=== PATIENT | female | born 1965 | race Caucasian/White ===

== ENCOUNTER 2019-05-01 13:20 | Emergency (ER) | payer MEDICAID, OTHER ==
[~2019-05-01] VITALS: Ht 162.6 cm; Wt 91.2 kg
[2019-05-01] MEDS ORDERED: cloNIDine HCL 0.1 MG TAB ONE (13:50)
[2019-05-01] MEDS ORDERED: cloNIDine HCL 0.1 MG TAB PO ONE (14:00)
[2019-05-01 14:30] LABS: Basophils # (auto) 0.1 uL; Basophils % (auto) 0.8 % (0.0-2.0); Eosinophils # (auto) 0.1 uL; Eosinophils % (auto) 1.6 % (0.0-7.0); Hematocrit 37.3 % (36.0-46.0); Hemoglobin 12.1 g/dL (12.2-16.2); Lymphocytes # (auto) 3.4 uL; Lymphocytes % (auto) 38.9 % (10.0-50.0); Mean Corpuscular Hemoglobin 24.7 pg (28.0-32.0); Mean Corpuscular Hgb Conc. 32.5 g/dL (32.0-36.0); Monocytes # (auto) 0.5 uL; Monocytes % (auto) 5.5 % (0.0-12.0); Neutrophils # (auto) 4.7 uL; Neutrophils % (auto) 53.2 % (37.0-80.0); Nucleated Red Blood Cells % 0.1 %; Platelet Count (auto) 350 10^3/uL (140-450); Red Blood Cells 4.91 10^6/uL (4.0-5.20); Red Cell Distribution Width 19.2 % (11.8-14.3); White Blood Cell 8.8 10^3/uL (4.4-10.8)
[2019-05-01 14:43] LABS: Albumin 3.3 g/dL (3.4-5.0); Anion Gap 9 (5-15); Blood Urea Nitrogen 14 mg/dL (7-18); Carbon Dioxide 24 mmol/L (21-32); Chloride 109 mmol/L (98-107); Glucose 80 mg/dL (74-106); Potassium 3.7 mmol/L (3.5-5.1); Sodium 142 mmol/L (136-145)
[2019-05-01 14:50] LABS: Alanine Aminotransferase 23 U/L (13-56); Alkaline Phosphatase 100 U/L (45-117); Aspartate Aminotransferase 16 U/L (15-37); BUN/Creatinine Ratio 15.2; Bilirubin, Total 0.6 mg/dL (0.2-1.0); GFR African American 82 mL/min; GFR Non-African American 67 mL/min; Total Protein 8.3 g/dL (6.4-8.2)
[2019-05-01] MEDS ORDERED: LEVETIRACETAM INJ 500 MG in D5W 5% 100 ML IV ONE (16:00)
[2019-05-01 19:21] VITALS: BP 121/79
== END 2019-05-01 19:56 | disposition left against medical advice (07) ==
LOC: EDBD 13:28 → ER 13:34
DX: G40.909 Epilepsy, unspecified, not intractable, without status epilepticus (principal); R42 Dizziness and giddiness; I10 Essential (primary) hypertension; D63.8 Anemia in other chronic diseases classified elsewhere; Z90.49 Acquired absence of other specified parts of digestive tract; Z88.8 Allergy status to other drugs, medicaments and biological substances
CPT/HCPCS: 36415; 70450; 71045; 80053; 80164; 84484; 85025; 93005; 96365; 99284; J1953; J7060

== ENCOUNTER 2019-05-11 18:53 | Emergency (ER) | payer MEDICAID ==
[~2019-05-11] VITALS: Ht 162.6 cm; Wt 91.2 kg
[2019-05-11] MEDS ORDERED: cloNIDine HCL 0.1 MG TAB PO ONE (19:15)
[2019-05-11 19:50] LABS: Eosinophils # (auto) 0.2 uL; Lymphocytes # (auto) 4.2 uL; Monocytes # (auto) 0.4 uL; Neutrophils # (auto) 5.4 uL
[2019-05-11 19:51] LABS: Basophils # (auto) 0.1 uL; Basophils % (auto) 0.6 % (0.0-2.0); Eosinophils % (auto) 1.9 % (0.0-7.0); Hematocrit 38.1 % (36.0-46.0); Hemoglobin 12.2 g/dL (12.2-16.2); Lymphocytes % (auto) 40.9 % (10.0-50.0); Mean Corpuscular Hemoglobin 24.6 pg (28.0-32.0); Mean Corpuscular Hgb Conc. 32.1 g/dL (32.0-36.0); Mean Corpuscular Volume 76.9 fL (80.0-100.0); Monocytes % (auto) 4.4 % (0.0-12.0); Neutrophils % (auto) 52.2 % (37.0-80.0); Nucleated Red Blood Cells % 0.1 %; Platelet Count (auto) 340 10^3/uL (140-450); Red Blood Cells 4.96 10^6/uL (4.0-5.20); Red Cell Distribution Width 18.5 % (11.8-14.3); White Blood Cell 10.3 10^3/uL (4.4-10.8)
[2019-05-11 19:57] LABS: Albumin 3.3 g/dL (3.4-5.0); Anion Gap 8 (5-15); Blood Urea Nitrogen 19 mg/dL (7-18); Calcium 9.7 mg/dL (8.5-10.1); Carbon Dioxide 26 mmol/L (21-32); Chloride 109 mmol/L (98-107); Glucose 111 mg/dL (74-106); Magnesium 2.4 mg/dL (1.6-2.6); Potassium 3.3 mmol/L (3.5-5.1); Sodium 143 mmol/L (136-145)
[2019-05-11 20:03] LABS: Alanine Aminotransferase 26 U/L (13-56); Alkaline Phosphatase 102 U/L (45-117); Aspartate Aminotransferase 15 U/L (15-37); BUN/Creatinine Ratio 19.2; Bilirubin, Total 0.4 mg/dL (0.2-1.0); GFR African American 75 mL/min; GFR Non-African American 62 mL/min; Total Protein 8.2 g/dL (6.4-8.2)
[2019-05-12 00:11] LABS: Salicylate < 1.7 mg/dL (2.8-20.0)
[2019-05-12 00:17] LABS: Acetaminophen < 2.0 ug/mL (10-30)
[2019-05-12 02:41] VITALS: BP 152/96
== END 2019-05-12 06:17 | disposition still patient (30) ==
LOC: ER 18:57
DX: F32.9 Major depressive disorder, single episode, unspecified (principal); R45.851 Suicidal ideations; I10 Essential (primary) hypertension; Z90.49 Acquired absence of other specified parts of digestive tract
CPT/HCPCS: 36415; 80053; 80329; 83735; 84484; 85025; 93005

== ENCOUNTER 2023-04-16 11:36 | Emergency (ER) | payer MEDICAID, OTHER ==
[~2023-04-16] VITALS: Ht 162.6 cm; Wt 90.9 kg
[2023-04-16 12:19] LABS: Hemoglobin 12.8 g/dL (12.2-16.2); Mean Corpuscular Hemoglobin 24.4 pg (28.0-32.0); Mean Corpuscular Volume 76.3 fL (80.0-100.0); Red Blood Cells 5.24 10^6/uL (4.0-5.20); Red Cell Distribution Width 17.7 % (11.8-14.3); White Blood Cell 12.2 10^3/uL (4.4-10.8)
[2023-04-16 12:29] LABS: INR 0.95 (0.9-1.15); Partial Thromboplastin Time 27.5 sec (24.6-33.4)
[2023-04-16 12:35] LABS: Basophils % (manual) 0 (0.0-2.0); Blast Cells 0; Metamyelocytes % 0; Myelocytes % 0; Promyelocytes % 0
[2023-04-16 13:32] LABS: Albumin 3.4 g/dL (3.4-5.0); Calcium 9.4 mg/dL (8.5-10.1); Magnesium 2.5 mg/dL (1.6-2.6)
[2023-04-16 13:36] LABS: BUN/Creatinine Ratio 18.3 (10.0-20.0); Potassium 4.2 mmol/L (3.5-5.1); Total Protein 8.2 g/dL (6.4-8.2)
[2023-04-16 13:36] LABS: Urine Bacteria MOD /hpf (None Seen); Urine Blood 1+ /uL (Negative); Urine Mucus FEW (None Seen); Urine Specific Gravity 1.023 (1.001-1.035); Urine WBC 15 /hpf (0 - 5)
[2023-04-16 13:41] LABS: Band Neutrophils % (manual) 1; Eosinophils % (manual) 1 (0-7); Lymphocytes % (manual) 57 (10.0-50.0); Monocytes % (manual) 3 (0-12); Reactive Lymphocytes 4
[2023-04-16 14:33] VITALS: BP 118/101
[2023-04-16] MEDS ORDERED: cloNIDine HCL 0.1 MG TAB PO ONE (15:30)
[2023-04-16] MEDS ORDERED: LISI20TA28 PO (17:30)
[2023-04-16] MEDS ORDERED: HYDR25TA5 PO (17:30)
== END 2023-04-16 18:28 | disposition left against medical advice (07) ==
LOC: ER 11:36
DX: R45.851 Suicidal ideations (principal); R44.0 Auditory hallucinations; I16.0 Hypertensive urgency; I10 Essential (primary) hypertension; Z90.49 Acquired absence of other specified parts of digestive tract; Z90.710 Acquired absence of both cervix and uterus; Z86.73 Personal history of transient ischemic attack (TIA), and cerebral infarction without residual deficits
CPT/HCPCS: 36415; 70450; 70496; 70551; 80053; 81001; 83735; 85007; 85027; 85610; 85730; 93005

== ENCOUNTER 2023-05-01 10:50 | Emergency (ER) | payer MEDICAID ==
[~2023-05-01] VITALS: Ht 165.1 cm; Wt 90.9 kg
[~2023-05-01 10:50] MED LIST: HYDR25TA5 PO; LISI20TA56 PO
[2023-05-01 10:59] VITALS: BP 145/84
[2023-05-01] MEDS ORDERED: SODIUM CHLORIDE 0.9% 1,000 ML IV ONE (11:00)
[2023-05-01] MEDS ORDERED: PANTOPRAZOLE 40 MG/10 ML VIAL INJ IV ONE (11:00)
[2023-05-01] MEDS ORDERED: ONDANSETRON HCL 4 MG/2 ML VIAL IV ONE (11:00)
[2023-05-01 11:15] LABS: Basophils # (auto) 0.1 10 ^3/uL (0-0.2); Basophils % (auto) 0.4 % (0.0-2.0); Eosinophils # (auto) 0 10 ^3/uL (0-0.8); Hematocrit 43.5 % (36.0-46.0); Hemoglobin 14.3 g/dL (12.2-16.2); Lymphocytes # (auto) 7.9 10 ^3/uL (0.4-5.4); Lymphocytes % (auto) 36.7 % (10.0-50.0); Mean Corpuscular Hemoglobin 24.8 pg (28.0-32.0); Mean Corpuscular Hgb Conc. 32.9 g/dL (32.0-36.0); Mean Corpuscular Volume 75.4 fL (80.0-100.0); Monocytes # (auto) 0.7 10 ^3/uL (0-1.3); Monocytes % (auto) 3.2 % (0.0-12.0); Neutrophils # (auto) 12.8 10 ^3/uL (1.6-8.6); Neutrophils % (auto) 59.7 % (37.0-80.0); Nucleated Red Blood Cells % 0.1 %; Red Blood Cells 5.77 10^6/uL (4.0-5.20); Red Cell Distribution Width 17.7 % (11.8-14.3); White Blood Cell 21.5 10^3/uL (4.4-10.8)
[2023-05-01 12:52] LABS: Albumin 3.7 g/dL (3.4-5.0); Calcium 9.7 mg/dL (8.5-10.1); Potassium 4.2 mmol/L (3.5-5.1)
[2023-05-01 12:55] LABS: BUN/Creatinine Ratio 22.9 (10.0-20.0); Bilirubin, Total 1.6 mg/dL (0.2-1.0); Total Protein 8.4 g/dL (6.4-8.2)
== END 2023-05-01 15:12 | disposition left against medical advice (07) ==
LOC: ER 10:50 → EDBD 10:50 → ER 15:12
DX: R11.2 Nausea with vomiting, unspecified (principal); R19.7 Diarrhea, unspecified; R53.1 Weakness; F32.9 Major depressive disorder, single episode, unspecified; I10 Essential (primary) hypertension; Z86.73 Personal history of transient ischemic attack (TIA), and cerebral infarction without residual deficits; Z90.710 Acquired absence of both cervix and uterus; Z90.49 Acquired absence of other specified parts of digestive tract; Z88.8 Allergy status to other drugs, medicaments and biological substances; Z79.899 Other long term (current) drug therapy
CPT/HCPCS: 36415; 74176; 80053; 85025; 96361; 96374; 96375; 99284; C9113; J2405; J7030

== ENCOUNTER → 2024-02-13 | Outpatient (CLI) | payer MEDICAID ==
[2024-02-13 10:55] LABS: Red Blood Cells 5.29 10^6/uL (4.0-5.20)
[2024-02-13 10:57] LABS: Hematocrit 41.1 % (36.0-46.0); Hemoglobin 13.3 g/dL (12.2-16.2); Mean Corpuscular Hemoglobin 25.1 pg (28.0-32.0); Mean Corpuscular Hgb Conc. 32.2 g/dL (32.0-36.0); Mean Corpuscular Volume 77.8 fL (80.0-100.0); Red Cell Distribution Width 17.4 % (11.8-14.3)
[2024-02-13 11:04] LABS: Band Neutrophils % (manual) 0; Basophils % (manual) 0 (0.0-2.0); Blast Cells 0; Eosinophils % (manual) 0 (0-7); Metamyelocytes % 0; Monocytes % (manual) 0 (0-12); Myelocytes % 0; Promyelocytes % 0
[2024-02-13 11:05] LABS: Urine Bacteria NONE SEEN /hpf (None Seen); Urine Blood 1+ /uL (Negative); Urine Clarity HAZY (Clear); Urine Color Yellow (Yellow); Urine Protein, UAD Negative (Negative); Urine Specific Gravity 1.019 (1.001-1.035); Urine Urobilinogen Normal (Negative); Urine WBC 2 /hpf (0 - 5)
[2024-02-13 11:23] LABS: Lymphocytes % (manual) 42 (10.0-50.0); Platelet Estimate Adequate; Reactive Lymphocytes 10
[2024-02-13 11:38] LABS: Chloride 105 mmol/L (98-107); Potassium 3.9 mmol/L (3.5-5.1); Sodium 140 mmol/L (136-145)
[2024-02-13 11:39] LABS: Anion Gap 6 (5-15); Calcium 10.1 mg/dL (8.5-10.1); Carbon Dioxide 29 mmol/L (20-30)
[2024-02-13 11:44] LABS: Alkaline Phosphatase 116 U/L (46-116); BUN/Creatinine Ratio 13.9 (10.0-20.0); Blood Urea Nitrogen 11 mg/dL (9-23); Glucose 82 mg/dL (74-106); Triglycerides 110 mg/dL (< 150)
[2024-02-13 11:45] LABS: LDL Cholesterol 134 mg/dL (< 100)
[2024-02-13 11:46] LABS: Albumin 4.4 g/dL (3.2-4.8); Aspartate Aminotransferase 17 U/L (13-40); Bilirubin, Total 0.9 mg/dL (0.2-1.0); Cholesterol 201 mg/dL (< 200); HDL Cholesterol 48 mg/dL (40-59); Total Protein 8.2 g/dL (5.7-8.2)
[2024-02-13 12:07] LABS: Alanine Aminotransferase 13 U/L (7-40)
== END | disposition home or self-care (01) ==
LOC: LAB 10:34
PROVIDERS: ATTEND Internal Medicine
DX: Z00.01 Encounter for general adult medical examination with abnormal findings (principal); Z29.9 Encounter for prophylactic measures, unspecified; Z13.1 Encounter for screening for diabetes mellitus
CPT/HCPCS: 36415; 80053; 80061; 81001; 83036; 84439; 84443; 85007; 85027

== ENCOUNTER 2024-08-21 11:07 | Inpatient (IN) | payer MEDICAID ==
[~2024-08-21] VITALS: Ht 162.6 cm; Wt 93.9 kg
[2024-08-21] MEDS ORDERED: ASPirin 81 mg TAB PO ONE (11:45)
[2024-08-21 11:49] LABS: Basophils # (auto) 0.1 10 ^3/uL (0-0.2); Basophils % (auto) 0.5 % (0.0-2.0); Eosinophils # (auto) 0.1 10 ^3/uL (0-0.8); Monocytes # (auto) 0.6 10 ^3/uL (0-1.3); Monocytes % (auto) 4.6 % (0.0-12.0); Neutrophils # (auto) 5.1 10 ^3/uL (1.6-8.6); Red Cell Distribution Width 17.9 % (11.8-14.3)
[2024-08-21 11:51] LABS: Eosinophils % (auto) 0.9 % (0.0-7.0); Hemoglobin 12.3 g/dL (12.2-16.2); Lymphocytes # (auto) 6.5 10 ^3/uL (0.4-5.4); Lymphocytes % (auto) 52.9 % (10.0-50.0); Mean Corpuscular Hgb Conc. 33.2 g/dL (32.0-36.0); Mean Corpuscular Volume 78.1 fL (80.0-100.0); Neutrophils % (auto) 41.1 % (37.0-80.0); Nucleated Red Blood Cells % 0.5 %; Platelet Count (auto) 247 10^3/uL (140-450); Red Blood Cells 4.74 10^6/uL (4.0-5.20); White Blood Cell 12.3 10^3/uL (4.4-10.8)
[2024-08-21 12:03] LABS: INR 1.01 (0.9-1.15); Partial Thromboplastin Time 28.6 SEC (24.5-34.5); Prothrombin Time 10.7 sec (9.3-11.8)
[2024-08-21 12:05] LABS: Alanine Aminotransferase 15 U/L (7-40); Albumin 4.2 g/dL (3.2-4.8); Alkaline Phosphatase 96 U/L (46-116); Anion Gap 6 (5-15); Aspartate Aminotransferase 12 U/L (13-40); BUN/Creatinine Ratio 25.6 (10.0-20.0); Blood Urea Nitrogen 22 mg/dL (9-23); Carbon Dioxide 28 mmol/L (20-31); Chloride 108 mmol/L (98-107); Glucose 85 mg/dL (74-106); Magnesium 2.4 mg/dL (1.6-2.6); Sodium 142 mmol/L (136-145)
[2024-08-21 12:06] LABS: Bilirubin, Total 0.5 mg/dL (0.2-1.0); Total Protein 7.4 g/dL (5.7-8.2)
[2024-08-21] MEDS: ASPirin 81 mg TAB PO ONE (14:34)
[2024-08-21] MEDS ORDERED: MORPHINE SULFATE INJ 2 MG/ml SYRG IV PRN (23:15)
[2024-08-22] VITALS (9 sets, daily range): BP systolic 143–185; BP diastolic 86–101; PULSE 79–97; RESP 16–24; TEMP 97.4–98.2; O2SAT 0–100
[2024-08-22] MEDS ORDERED: NIFE10CA58 PO (01:34)
[2024-08-22] MEDS ORDERED: ARIP2TAB INJ (01:34)
[2024-08-22] MEDS ORDERED: DIVA-92 PO (01:34)
[2024-08-22] MEDS ORDERED: DULO60CA41 PO (01:34)
[2024-08-22] MEDS ORDERED: PRAZ1CAP2 PO (01:34)
[2024-08-22] MEDS ORDERED: BUSP5TAB51 PO (01:34)
[2024-08-22] MEDS ORDERED: CLON0.1T PO (01:34)
[2024-08-22 07:50] LABS: Basophils % (auto) 0.3 % (0.0-2.0); Eosinophils # (auto) 0.2 10 ^3/uL (0-0.8); Nucleated Red Blood Cells % 0.1 %
[2024-08-22 07:53] LABS: Basophils # (auto) 0 10 ^3/uL (0-0.2); Eosinophils % (auto) 1.1 % (0.0-7.0); Hematocrit 41.3 % (36.0-46.0); Hemoglobin 13.9 g/dL (12.2-16.2); Lymphocytes # (auto) 6.9 10 ^3/uL (0.4-5.4); Lymphocytes % (auto) 47.3 % (10.0-50.0); Mean Corpuscular Hemoglobin 26.4 pg (28.0-32.0); Mean Corpuscular Hgb Conc. 33.7 g/dL (32.0-36.0); Mean Corpuscular Volume 78.5 fL (80.0-100.0); Monocytes # (auto) 0.8 10 ^3/uL (0-1.3); Monocytes % (auto) 5.5 % (0.0-12.0); Neutrophils # (auto) 6.7 10 ^3/uL (1.6-8.6); Neutrophils % (auto) 45.8 % (37.0-80.0); Platelet Count (auto) 257 10^3/uL (140-450); Red Blood Cells 5.27 10^6/uL (4.0-5.20); White Blood Cell 14.7 10^3/uL (4.4-10.8)
[2024-08-22] MEDS: hydrALAZINE HCL 20 MG/ML VL IV PRN (09:05)
[2024-08-22] MEDS: DOCUSATE SOD 100 MG CAP PO ONE (09:06)
[2024-08-22 09:51] LABS: Calcium 10.1 mg/dL (8.7-10.4); Chloride 106 mmol/L (98-107); Potassium 3.9 mmol/L (3.5-5.1); Sodium 140 mmol/L (136-145)
[2024-08-22 09:52] LABS: Anion Gap 6 (5-15); Carbon Dioxide 28 mmol/L (20-31)
[2024-08-22 09:57] LABS: BUN/Creatinine Ratio 23.7 (10.0-20.0); Blood Urea Nitrogen 18 mg/dL (9-23); Glucose 82 mg/dL (74-106)
[2024-08-22 10:12] LABS: Triglycerides 97 mg/dL (< 150)
[2024-08-22 10:13] LABS: HDL Cholesterol 41 mg/dL (40-59); LDL Cholesterol 87 mg/dL (< 100)
[2024-08-22 10:14] LABS: Cholesterol 148 mg/dL (< 200)
[2024-08-22 10:15] LABS: Erythrocyte Sedimentation Rate 40 mm/hr (0-20)
[2024-08-22] MEDS ORDERED: busPIRone HCL 10 MG TAB PO SCH (10:27)
[2024-08-22 12:26] LABS: % Iron Saturation 11.8 % (15-50)
[2024-08-22] MEDS: COLCHICINE 0.6 MG CAP PO ONE (13:37)
[2024-08-22] MEDS: POLYETHYLENE GLYCOL 17 GM PWDR PO ONE (13:37)
[2024-08-22] MEDS: NIFEdipine ER 30 MG TAB PO ONE (13:39)
[2024-08-22] MEDS: PANTOPRAZOLE 40 MG TAB PO ONE (13:54)
[2024-08-22] MEDS: IBUPROFEN 800 MG TAB PO SCH (14:00)
[2024-08-22] MEDS: PRAZOSIN HCL 1 MG CAP PO SCH (16:34)
[2024-08-22] MEDS ORDERED: ATOR40TA52 PO (17:21)
[2024-08-22] MEDS ORDERED: DULO1CAP4 PO (17:21)
[2024-08-22] MEDS ORDERED: ARIP1TAB63 PO (17:21)
[2024-08-22] MEDS ORDERED: NIFE1TAB30 PO (17:21)
[2024-08-22] MEDS ORDERED: CARV25TA55 PO (17:21)
[2024-08-22] MEDS ORDERED: ARIP400I IM (17:21)
[2024-08-22] MEDS ORDERED: CARI1CAP2 PO (17:21)
[2024-08-22] MEDS ORDERED: BUSP30TA PO (17:21)
[2024-08-22] MEDS ORDERED: CLON0.2T PO (17:21)
[2024-08-22] MEDS: ACETAMINOPHEN 500 MG TAB PO ONE (17:28)
[2024-08-22] MEDS: cloNIDine HCL 0.1 MG TAB PO ONE (17:50)
[2024-08-22] MEDS: ONDANSETRON HCL 4 MG/2 ML VIAL IV PRN (18:05)
[2024-08-22] MEDS: NITROGLYCERIN 0.4 MG SL TAB SL PRN (19:02)
[2024-08-22] MEDS: ATORVASTATIN 20 MG TAB PO SCH (22:35)
[2024-08-22] MEDS: COLCHICINE 0.6 MG CAP PO SCH (22:36)
[2024-08-23] VITALS (9 sets, daily range): BP systolic 121–144; BP diastolic 73–92; PULSE 86–108; RESP 14–20; TEMP 97.5–98.7; O2SAT 0–96
[2024-08-23] MEDS: PANTOPRAZOLE 40 MG TAB PO SCH (06:31)
[2024-08-23 08:10] LABS: Basophils # (auto) 0 10 ^3/uL (0-0.2); Basophils % (auto) 0.3 % (0.0-2.0); Eosinophils # (auto) 0.1 10 ^3/uL (0-0.8); Eosinophils % (auto) 0.8 % (0.0-7.0); Hemoglobin 14.7 g/dL (12.2-16.2); Lymphocytes # (auto) 6.1 10 ^3/uL (0.4-5.4); Lymphocytes % (auto) 46.6 % (10.0-50.0); Mean Corpuscular Hemoglobin 26.1 pg (28.0-32.0); Mean Corpuscular Hgb Conc. 33.4 g/dL (32.0-36.0); Mean Corpuscular Volume 78.2 fL (80.0-100.0); Monocytes # (auto) 0.8 10 ^3/uL (0-1.3); Monocytes % (auto) 6.3 % (0.0-12.0); Neutrophils # (auto) 6.1 10 ^3/uL (1.6-8.6); Nucleated Red Blood Cells % 0.3 %; Platelet Count (auto) 307 10^3/uL (140-450); Red Blood Cells 5.63 10^6/uL (4.0-5.20); Red Cell Distribution Width 18.4 % (11.8-14.3); White Blood Cell 13.2 10^3/uL (4.4-10.8)
[2024-08-23 08:24] LABS: Chloride 104 mmol/L (98-107); Potassium 3.8 mmol/L (3.5-5.1); Sodium 138 mmol/L (136-145)
[2024-08-23 08:25] LABS: Anion Gap 8 (5-15); Calcium 11.1 mg/dL (8.7-10.4); Carbon Dioxide 26 mmol/L (20-31)
[2024-08-23 08:30] LABS: BUN/Creatinine Ratio 19.8 (10.0-20.0); Blood Urea Nitrogen 22 mg/dL (9-23); Glucose 83 mg/dL (74-106)
[2024-08-23] MEDS: POLYETHYLENE GLYCOL 17 GM PWDR PO SCH (09:16)
[2024-08-23] MEDS: NIFEdipine ER 30 MG TAB PO SCH (09:17)
[2024-08-23 15:41] LABS: Urine Bacteria FEW /hpf (None Seen); Urine Blood 1+ /uL (Negative); Urine Clarity Turbid (Clear); Urine Color Yellow (Yellow); Urine Hyaline Cast FEW /lpf (0 - 2); Urine Mucus FEW (None Seen); Urine Protein, UAD TRACE (Negative); Urine Specific Gravity 1.021 (1.001-1.035); Urine Urobilinogen Normal (Negative); Urine WBC 8 /hpf (0 - 5); Urine pH 5.5 (5.0-9.0)
[2024-08-23 15:43] LABS: Amphetamine Screen, Urine Neg (NEGATIVE); Barbiturate Scree,Urine Neg (NEGATIVE); Benzodiazephine Screen, Urine Neg (NEGATIVE); Cocaine Screen, Urine Neg (NEGATIVE); Opiate Scree,Urine Neg (NEGATIVE)
[2024-08-23 15:44] LABS: Cannabinoid Screen, Urine Neg (NEGATIVE); Phencyclidine Screen, Urine Neg (NEGATIVE)
[2024-08-23 15:45] LABS: Creatinine, Urine 157.99 mg/dL (30.0-125.0)
[2024-08-24 01:00] VITALS: BP 137/98; PULSE 95; RESP 19; O2SAT 96
[2024-08-24 05:00] VITALS: BP 149/95; PULSE 100; RESP 18; TEMP 98; O2SAT 98
[2024-08-24 07:09] LABS: Alanine Aminotransferase 36 U/L (7-40); Albumin 4.4 g/dL (3.2-4.8); Anion Gap 8 (5-15); Aspartate Aminotransferase 34 U/L (13-40); BUN/Creatinine Ratio 23.5 (10.0-20.0); Bilirubin, Total 0.5 mg/dL (0.2-1.0); Calcium 11.1 mg/dL (8.7-10.4); Carbon Dioxide 27 mmol/L (20-31); Chloride 105 mmol/L (98-107); Glucose 92 mg/dL (74-106); Potassium 4.5 mmol/L (3.5-5.1); Sodium 140 mmol/L (136-145)
[2024-08-24 07:19] LABS: Alkaline Phosphatase 107 U/L (46-116)
[2024-08-24 07:23] LABS: Blood Urea Nitrogen 32 mg/dL (9-23)
[2024-08-24 07:34] LABS: Basophils # (auto) 0.1 10 ^3/uL (0-0.2); Basophils % (auto) 0.5 % (0.0-2.0); Eosinophils # (auto) 0.3 10 ^3/uL (0-0.8); Eosinophils % (auto) 1.9 % (0.0-7.0); Hematocrit 44.9 % (36.0-46.0); Hemoglobin 14.9 g/dL (12.2-16.2); Lymphocytes # (auto) 7.9 10 ^3/uL (0.4-5.4); Lymphocytes % (auto) 51.4 % (10.0-50.0); Mean Corpuscular Hemoglobin 26.1 pg (28.0-32.0); Mean Corpuscular Hgb Conc. 33.2 g/dL (32.0-36.0); Mean Corpuscular Volume 78.7 fL (80.0-100.0); Monocytes # (auto) 1.3 10 ^3/uL (0-1.3); Monocytes % (auto) 8.2 % (0.0-12.0); Neutrophils # (auto) 5.8 10 ^3/uL (1.6-8.6); Nucleated Red Blood Cells % 0.3 %; Platelet Count (auto) 283 10^3/uL (140-450); Red Cell Distribution Width 18.4 % (11.8-14.3); White Blood Cell 15.3 10^3/uL (4.4-10.8)
[2024-08-24 08:00] VITALS: PULSE 91
[2024-08-24 08:15] VITALS: PULSE 89; RESP 18; O2SAT 0
[2024-08-24 09:40] VITALS: BP 170/111; PULSE 89; RESP 18; TEMP 98; O2SAT 94
[2024-08-24] MEDS ORDERED: PRAZ1CAP2 PO (12:43)
[2024-08-24] MEDS ORDERED: NIFE1TAB36 PO (12:43)
[2024-08-24] MEDS ORDERED: PANT40TA2 PO (12:48)
[2024-08-24] MEDS ORDERED: IBUP200C14 PO (12:48)
[2024-08-24] MEDS ORDERED: COLC1CAP PO (12:48)
[2024-08-24] MEDS ORDERED: IBUP-1455 PO (12:48)
[2024-08-24 14:23] VITALS: TEMP 98.5
[2024-08-24] MEDS: cloNIDine HCL 0.1 MG TAB PO SCH (14:23)
== END 2024-08-24 14:49 | disposition home or self-care (01) | DRG 207 ==
LOC: EDBD 11:07 → ER 11:07 → TELE 23:12 → TELE-CENTR 08-22 01:00
PROVIDERS: ADMIT Internal Medicine; ATTEND Emergency Medicine
DX: I30.9 Acute pericarditis, unspecified (principal); N17.9 Acute kidney failure, unspecified; F25.9 Schizoaffective disorder, unspecified; J90 Pleural effusion, not elsewhere classified; R45.851 Suicidal ideations; I11.0 Hypertensive heart disease with heart failure; E11.9 Type 2 diabetes mellitus without complications; E66.9 Obesity, unspecified; I16.0 Hypertensive urgency; K59.00 Constipation, unspecified; F31.9 Bipolar disorder, unspecified; F43.10 Post-traumatic stress disorder, unspecified; G40.909 Epilepsy, unspecified, not intractable, without status epilepticus; I49.3 Ventricular premature depolarization; Z59.01 Sheltered homelessness; Z79.899 Other long term (current) drug therapy; Z90.49 Acquired absence of other specified parts of digestive tract; Z86.73 Personal history of transient ischemic attack (TIA), and cerebral infarction without residual deficits; Z82.49 Family history of ischemic heart disease and other diseases of the circulatory system; Z91.148 Patient's other noncompliance with medication regimen for other reason; Z81.8 Family history of other mental and behavioral disorders; Z90.710 Acquired absence of both cervix and uterus; Z59.00 Homelessness unspecified; Z68.35 Body mass index [BMI] 35.0-35.9, adult
CPT/HCPCS: 36415; 71045; 71250; 80048; 80053; 80061; 80307; 81001; 82306; 82570; 82607; 83036; 83540; 83550; 83735; 83880; 84300; 84443; 84484; 85025; 85610; 85652; 85730; 86141; 93005; 93306; 93970; G0378; J2405

== ENCOUNTER → 2024-09-02 | Outpatient (CLI) | payer MEDICAID ==
[~2024-09-02] MED LIST changes: +ARIP1TAB63 PO; +ARIP400I IM; +ATOR40TA52 PO; +BUSP30TA PO; +CARI1CAP2 PO; +COLC1CAP PO; +DIVA-92 PO; +DULO1CAP4 PO; -HYDR25TA5 PO; +IBUP-1455 PO; +IBUP200C14 PO; -LISI20TA56 PO; +NIFE1TAB36 PO; +PANT40TA2 PO; +PRAZ1CAP2 PO
[2024-09-02 14:12] LABS: Mean Corpuscular Volume 78.7 fL (80.0-100.0)
[2024-09-02 14:15] LABS: Hematocrit 40.1 % (36.0-46.0); Hemoglobin 13.2 g/dL (12.2-16.2); Mean Corpuscular Hemoglobin 25.8 pg (28.0-32.0); Mean Corpuscular Hgb Conc. 32.8 g/dL (32.0-36.0); Platelet Count (auto) 225 10^3/uL (140-450); Red Cell Distribution Width 18.6 % (11.8-14.3); White Blood Cell 18.1 10^3/uL (4.4-10.8)
[2024-09-02 14:19] LABS: Band Neutrophils % (manual) 0; Basophils % (manual) 0 (0.0-2.0); Blast Cells 0; Metamyelocytes % 0; Myelocytes % 0; Promyelocytes % 0
[2024-09-02 14:29] LABS: Alanine Aminotransferase 89 U/L (7-40); Albumin 4.4 g/dL (3.2-4.8); Alkaline Phosphatase 103 U/L (46-116); Anion Gap 9 (5-15); Aspartate Aminotransferase 57 U/L (13-40); BUN/Creatinine Ratio 23.8 (10.0-20.0); Bilirubin, Total 0.5 mg/dL (0.2-1.0); Blood Urea Nitrogen 20 mg/dL (9-23); Calcium 10.1 mg/dL (8.7-10.4); Carbon Dioxide 29 mmol/L (20-31); Chloride 105 mmol/L (98-107); Glucose 104 mg/dL (74-106); Potassium 3.4 mmol/L (3.5-5.1); Sodium 143 mmol/L (136-145); Total Protein 7.6 g/dL (5.7-8.2)
[2024-09-02 14:49] LABS: Eosinophils % (manual) 4 (0-7); Lymphocytes % (manual) 62 (10.0-50.0); Monocytes % (manual) 5 (0-12); Platelet Estimate Adequate; Reactive Lymphocytes 4
[2024-09-02 14:51] LABS: Erythrocyte Sedimentation Rate 17 mm/hr (0-20)
== END | disposition home or self-care (01) ==
LOC: LAB 13:27
PROVIDERS: ATTEND Internal Medicine
DX: I10 Essential (primary) hypertension (principal); N39.0 Urinary tract infection, site not specified
CPT/HCPCS: 36415; 80053; 85007; 85027; 85652

== ENCOUNTER → 2024-09-12 | Outpatient (CLI) | payer MEDICAID ==
[2024-09-12 11:10] LABS: Hemoglobin 13.7 g/dL (12.2-16.2)
[2024-09-12 11:12] LABS: Hematocrit 41.2 % (36.0-46.0); Mean Corpuscular Hemoglobin 26.2 pg (28.0-32.0); Mean Corpuscular Hgb Conc. 33.2 g/dL (32.0-36.0); Mean Corpuscular Volume 78.9 fL (80.0-100.0); Platelet Count (auto) 171 10^3/uL (140-450); Red Blood Cells 5.22 10^6/uL (4.0-5.20); White Blood Cell 12.8 10^3/uL (4.4-10.8)
[2024-09-12 11:15] LABS: Basophils % (manual) 0 (0.0-2.0); Blast Cells 0; Metamyelocytes % 0; Myelocytes % 0; Promyelocytes % 0; Reactive Lymphocytes 0
[2024-09-12 11:42] LABS: Band Neutrophils % (manual) 2; Eosinophils % (manual) 4 (0-7); Lymphocytes % (manual) 60 (10.0-50.0); Monocytes % (manual) 4 (0-12)
[2024-09-12 11:45] LABS: Anisocytosis Slight; Platelet Estimate Adequate
[2024-09-12 11:55] LABS: Alanine Aminotransferase 43 U/L (7-40); Albumin 4.3 g/dL (3.2-4.8); Alkaline Phosphatase 97 U/L (46-116); Anion Gap 5 (5-15); Aspartate Aminotransferase 27 U/L (13-40); Bilirubin, Total 0.5 mg/dL (0.2-1.0); Blood Urea Nitrogen 20 mg/dL (9-23); Calcium 10.2 mg/dL (8.7-10.4); Carbon Dioxide 30 mmol/L (20-31); Chloride 108 mmol/L (98-107); Glucose 80 mg/dL (74-106); Sodium 143 mmol/L (136-145); Total Protein 7.7 g/dL (5.7-8.2)
== END | disposition home or self-care (01) ==
LOC: LAB 10:40
PROVIDERS: ATTEND Internal Medicine
DX: E87.6 Hypokalemia (principal); E83.52 Hypercalcemia; D72.829 Elevated white blood cell count, unspecified
CPT/HCPCS: 36415; 80053; 85007; 85027